=== PATIENT | male | born 1940 | race Caucasian/White ===

== ENCOUNTER 2016-04-06 18:32 | Emergency (ER) | payer BC, MEDICARE ==
[~2016-04-06] VITALS: Ht 167.6 cm; Wt 79.5 kg
[2016-04-06 18:50] VITALS: BP 107/70; PULSE 83; RESP 20; TEMP 99.8; O2SAT 94
[2016-04-06] MEDS ORDERED: CIAL5TAB PO (19:23)
[2016-04-06] MEDS ORDERED: LEVO500T3 PO (19:23)
[2016-04-06] MEDS ORDERED: ASPI1TAB69 PO (19:23)
[2016-04-06] MEDS ORDERED: MULTTAB67 PO (19:23)
[2016-04-06] MEDS ORDERED: FEXO15TA PO (19:23)
[2016-04-06] MEDS ORDERED: OMEP20TA PO (19:23)
[2016-04-06] MEDS ORDERED: GABA300C5 PO (19:23)
[2016-04-06] MEDS ORDERED: OXYC1TAB35 PO (19:23)
[2016-04-06] MEDS ORDERED: PARO12.5CR PO (19:23)
[2016-04-06] MEDS ORDERED: MONT10TA4 PO (19:23)
[2016-04-06] MEDS ORDERED: CETI10 PO (19:25)
--- NOTE | 2016-04-06 19:26 | PD ---
HPI Chief Complaint: Complaint Time Seen by Provider: 19:23 Travel History International Travel<30 days: No Contact w/Intl Traveler<30days: No Traveled to known affect area: No History of Present Illness HPI The patient is a 75-year-old male that had a TURP done yesterday morning with Dr. Metzger. He did fine and his urine was clearing up last night but then he began getting pain at the head of these penis. He has a catheter in place. He states his fever went up to 102.5. He denies any flank pain. He does have some slight suprapubic discomfort as expected following a TURP. The patient wants his catheter out, he states when he stands up he has severe pain which he feels that the head of his penis. There was no support on his catheter and the catheter pulls down forcing the balloon of the catheter down in the lower bladder, upper urethral area. The patient states he just switched from Levaquin to Cipro today on the advice of Dr. Metzger's office. PFSH Past Medical History Arthritis: Yes Asthma: No Depression: Yes High Cholesterol: Yes COPD: No Diminished Hearing: Yes ([place] BILAT) Kidney Stones: Yes Reproductive: Yes (LEGIONAIRES, MONO, BRONCHITIS X3) Immunizations Current: Yes Pneumonia: Yes Tetanus Vaccination: Unknown Influenza Vaccination: Yes Past Surgical History Eye Surgery: Yes (BILAT) Genitourinary Surgery: Yes (TURP) Neurologic Surgery: Yes (RIGHT CARPLE TUNNEL) Tonsillectomy: Yes Social History Alcohol Use: Yes (2 GLASSES WINE AT NIGHT) Tobacco Use: No (QUIT 1970) Substance Use: No Allergies-Medications (Allergen,Severity, Reaction): Coded Allergies: No Known Allergies (Verified , 04/06/16) Reported Meds & Prescriptions Reported Meds & Active Scripts Active Ditropan (Oxybutynin Chloride) 5 Mg Tab 5 Mg PO Q12HR Reported Cetirizine (Cetirizine HCl) 10 Mg Tab 10 Mg PO DAILY Oxycodone-Acetaminophen 7.5-325 mg Tab 1 Tab PO Q6H PRN Levofloxacin 500 Mg Tab 500 Mg PO DAILY Montelukast (Montelukast Sodium) 10 Mg Tab 10 Mg PO HS Paxil CR (Paroxetine HCl) 12.5 Mg Tab 6 Mg PO DAILY Omeprazole 20 Mg Tab 20 Mg PO DAILY Gabapentin 300 Mg Cap 300 Mg PO HS Multiple Vitamin 1 Tab 1 Tab PO DAILY Cialis (Tadalafil) 5 Mg Tab 5 Mg PO DAILY Do not exceed 1 dose/day. Aspirin 81 Mg Tabdr 81 Mg PO DAILY Review of Systems Except as stated in HPI: all other systems reviewed are Neg Physical Exam Narrative GENERAL: The patient is alert, oriented 3 and slight apparent distress with the head of his penis discomfort. His vital signs show temperature 99.8 but are otherwise normal. SKIN: Warm and dry. HEAD: Atraumatic. Normocephalic. EYES: Pupils equal and round. No scleral icterus. No injection or drainage. ENT: No nasal bleeding or discharge. Mucous membranes pink and moist. NECK: Trachea midline. No JVD. CARDIOVASCULAR: Regular rate and rhythm. No murmur appreciated. RESPIRATORY: No accessory muscle use. Clear to auscultation. Breath sounds equal bilaterally. GASTROINTESTINAL: Abdomen soft, with slight discomfort to direct palpation in the midline suprapubic area, nondistended. Hepatic and splenic margins not palpable. No guarding or rebound is present. MUSCULOSKELETAL: No obvious deformities. No clubbing. No cyanosis. No edema. NEUROLOGICAL: Awake and alert. No obvious cranial nerve deficits. Motor grossly within normal limits. Normal speech. PSYCHIATRIC: Appropriate mood and affect; insight and judgment normal. GENITOURINARY: Circumcised. Testes descended bilaterally without evidence of rotation. No lesions or erythema. No urethral discharge but there is a catheter in place. No lacerations are seen on the head of the penis but there is slight tenderness of the head of the penis. The head of the penis does not appear to be particularly red or swollen. Data Data Last Documented VS Vital Signs Date Time Temp Pulse Resp B/P Pulse Ox O2 Delivery O2 Flow Rate FiO2 04/06/16 19:03 83 18 04/06/16 18:50 99.8 107/70 94 Orders Complete Blood Count With Diff (04/06/16 19:24) Comprehensive Metabolic Panel (04/06/16 19:24) Urinalysis - C+S If Indicated (04/06/16 19:24) Urine Culture (04/06/16 19:59) Oxybutynin (Ditropan) (04/06/16 22:30) Labs Laboratory Tests Test 04/06/16 04/06/16 19:50 19:59 White Blood Count 7.5 TH/MM3 Red Blood Count 3.83 MIL/MM3 Hemoglobin 11.7 GM/DL Hematocrit 35.2 % Mean Corpuscular Volume 92.0 FL Mean Corpuscular Hemoglobin 30.5 PG Mean Corpuscular Hemoglobin 33.2 % Concent Red Cell Distribution Width 12.8 % Platelet Count 176 TH/MM3 Mean Platelet Volume 7.7 FL Neutrophils (%) (Auto) 75.2 % Lymphocytes (%) (Auto) 13.4 % Monocytes (%) (Auto) 10.4 % Eosinophils (%) (Auto) 0.4 % Basophils (%) (Auto) 0.6 % Neutrophils # (Auto) 5.7 TH/MM3 Lymphocytes # (Auto) 1.0 TH/MM3 Monocytes # (Auto) 0.8 TH/MM3 Eosinophils # (Auto) 0.0 TH/MM3 Basophils # (Auto) 0.0 TH/MM3 CBC Comment DIFF FINAL Differential Comment Sodium Level 137 MEQ/L Potassium Level 4.0 MEQ/L Chloride Level 102 MEQ/L Carbon Dioxide Level 26.5 MEQ/L Anion Gap 9 MEQ/L Blood Urea Nitrogen 13 MG/DL Creatinine 1.10 MG/DL Estimat Glomerular Filtration 65 ML/MIN Rate Random Glucose 109 MG/DL Calcium Level 8.4 MG/DL Total Bilirubin 0.7 MG/DL Aspartate Amino Transf 16 U/L (AST/SGOT) Alanine Aminotransferase 19 U/L (ALT/SGPT) Alkaline Phosphatase 78 U/L Total Protein 6.6 GM/DL Albumin 3.1 GM/DL Urine Collection Type VOIDED Urine Color YELLOW Urine Turbidity SLIGHT Urine pH 7.5 Urine Specific [place] 1.012 Urine Protein 100 mg/dL Urine Glucose (UA) NEG mg/dL Urine Ketones NEG mg/dL Urine Occult Blood LARGE Urine Nitrite NEG Urine Bilirubin NEG Urine Leukocyte Esterase MOD Urine RBC INNUM /hpf Urine WBC 25-49 /hpf Urine WBC Clumps FEW Urine Squamous Epithelial 0-3 /hpf Cells Urine Bacteria FEW /hpf Microscopic Urinalysis Comment CULTURE INDICATED MDM Medical Decision Making Medical Screen Exam Complete: Yes Emergency Medical Condition: Yes Medical Record Reviewed: Yes Interpretation(s) The CBC shows a hemoglobin 11.7 and hematocrit of 35.2 with 75% neutrophils but is otherwise unremarkable. The urine shows 100 protein, large occult blood, moderate leukocyte esterase, innumerable red cells with 25-49 white cells and few bacteria and culture is indicated. The complete metabolic profile shows a GFR of 65, glucose 109, calcium 8.4 and albumin 3.1 but is otherwise unremarkable. Differential Diagnosis Catheter balloon related pain, urinary tract infection, pyelonephritis, cystitis , urethritis, bladder spasms Narrative Course At this time the patient has had a leg band put on to support the catheter weight. The patient cannot stand it and is completely comfortable. It appears that his problem was the weight of the catheter forcing the balloon into the lower part of the bladder/upper urethral area. He feels comfortable in going home now. I cannot find any evidence of infection, there is blood in the urine but the white cells seen to be proportional to the large amount of blood. He will be given his blood work and follow-up tomorrow morning as scheduled with Dr. Metzger. Impression: Catheter-related bladder spasms Diagnosis Primary Impression: Bladder spasms Additional Impression: Urinary catheter complication Additional Instructions: The force of the catheter into the lower bladder/upper urethra was apparently responsible for your pain. I do not know where your fever came from but do take the antibiotic that was prescribed most recently. Feel free to adjust the leg band/catheter so that the catheter weight does not cause any discomfort. It is felt that the catheter is initiating bladder spasms. Follow-up tomorrow morning with Dr. Metzger as scheduled. Med/Other Pt SpecificInfo: Prescription(s) given Scripts Oxybutynin (Ditropan)5 Mg Tab5 Mg PO Q12HR #20 TAB Ref 0 Prov:Rahul Doll MD 04/06/16 Disposition: 01 DISCHARGE HOME Condition: Stable Rahul Doll MD Apr 06, 2016 19:26
[2016-04-06 19:40] VITALS: BP 93/67; PULSE 68; RESP 16; O2SAT 96
[2016-04-06 20:11] LABS: AUTOMATED NEUTROPHIL # 5.7 TH/MM3 (1.8-7.7); BASOPHIL % 0.6 % (0.0-2.0); EOSINOPHIL % 0.4 % (0.0-4.0); HEMATOCRIT 35.2 % (39.0-51.0); HEMO FLAGS DIFF FINAL; LYMPH % 13.4 % (9.0-44.0); MEAN CORPUSCULAR HEMOGLOBIN 30.5 PG (27.0-34.0); MEAN CORPUSCULAR HGB CONC 33.2 % (32.0-36.0); MONO % 10.4 % (0.0-8.0); NEUT % 75.2 % (16.0-70.0); PLATELET COUNT 176 TH/MM3 (150-450); RED BLOOD COUNT 3.83 MIL/MM3 (4.50-5.90); RED CELL DISTRIBUTION WIDTH 12.8 % (11.6-17.2); WHITE BLOOD COUNT 7.5 TH/MM3 (4.0-11.0)
[2016-04-06 20:12] LABS: BLOOD, URINE LARGE (NEG); GLUCOSE,URINE NEG (NEG); KETONE, URINE NEG (NEG); NITRITE,URINE NEG (NEG); PH, URINE 7.5 (5.0-8.5)
[2016-04-06 20:17] LABS: CHLORIDE 102 MEQ/L (98-107); SODIUM (NA) 137 MEQ/L (136-145)
[2016-04-06 20:21] LABS: ANION GAP 9 MEQ/L (5-15); BICARBONATE 26.5 MEQ/L (21.0-32.0); BLOOD UREA NITROGEN 13 MG/DL (7-18)
[2016-04-06 20:24] LABS: ALT (GPT) 19 U/L (12-78); AST (GOT) 16 U/L (15-37); GLOMERULAR FILTRATION RATE 65 ML/MIN (>89)
[2016-04-06 20:26] LABS: TOTAL BILIRUBIN ADULT 0.7 MG/DL (0.2-1.0)
[2016-04-06 20:27] LABS: ALKALINE PHOSPHATASE 78 U/L (45-117)
[2016-04-06 20:31] LABS: METHOD OF COLLECTION VOIDED; URINE COLOR YELLOW (YELLW/STRAW)
[2016-04-06 20:32] LABS: RBC, URINE INNUM /hpf (0-3)
[2016-04-06 20:33] LABS: BACTERIA, URINE FEW /hpf; COMMENT (UR) CULTURE INDICATED; CULTURE IF INDICATED CULTURE INDICATED; SQUAMOUS EPITHELIAL CELL URINE 0-3 /hpf (0-5)
[2016-04-06 21:40] VITALS: BP 93/63; PULSE 64; RESP 16; O2SAT 95
[2016-04-06] MEDS ORDERED: OXYB5TAB10 PO (22:17)
[2016-04-06] MEDS ORDERED: OXYBUTYNIN CHLORIDE 5 MG TAB PO ONE (22:30)
== END 2016-04-06 22:40 | disposition home or self-care (01) ==
LOC: PHED 18:32
DX: N48.89 Other specified disorders of penis (principal); N32.89 Other specified disorders of bladder; T83.9XXA Unspecified complication of genitourinary prosthetic device, implant and graft, initial encounter
CPT/HCPCS: 80053; 81001; 85025; 87086; 99283